=== PATIENT | female | born 1995 | race Caucasian/White ===

== ENCOUNTER 2018-12-02 23:50 | Emergency (ER) | payer OTHER ==
[2018-12-02 23:57] VITALS: BP 135/91; PULSE 72; TEMP 98.5; BMI 30.2
[2018-12-02] MEDS ORDERED: FAMOTIDINE 20 MG/50 ML IVPB 20 MG/50 ML MG IVPB ONE (23:57)
[2018-12-02] MEDS ORDERED: SODIUM CHLORIDE 1,000 ML IV STA (23:57)
--- NOTE | 2018-12-03 | PDOC ---
History of Present Illness - General History Source: Patient Exam Limitations: No Limitations - History of Present Illness Initial Comments: 12/03/18 00:00 The patient is a 23 year old female, with no significant past medical history, who presents to the emergency department with, 3 days of diffuse, burning, mid- abdominal pain with associated nausea and vomiting. She endorses taking Mylanta and Pepto Bismol, without relief. As per patient, she was seen at [facility] 3 days ago at which time she received IV fluids and negative lab work then discharged home. She notes going back to [facility] today but, left prior to evaluation. Patient is passing gas normally. She denies any recent travel or abnormal food intake. She denies recent fevers, chills, headache or dizziness. She denies recent dysuria, frequency, urgency or hematuria. She denies recent chest pain or shortness of breath. Allergies: NKDA Past surgical history: None reported. Social history: Nonsmoker. Denies EtOH use and recreational drug use. <Lela Longoria - Last Filed: 12/03/18 00:00> <Ruma Fuentes - Last Filed: 12/03/18 04:17> - General Chief Complaint: Nausea/Vomiting Stated Complaint: VOMITING X 3 DAYS Time Seen by Provider: 12/02/18 23:54 Past History <Lela Longoria - Last Filed: 12/03/18 00:00> - Immunization History Immunization Up to Date: Yes - Suicide/Smoking/Psychosocial Hx Smoking History: Never smoked Number of Cigarettes Smoked Daily: 0 Hx Alcohol Use: No Drug/Substance Use Hx: No Substance Use Type: None <Ruma Fuentes - Last Filed: 12/03/18 04:17> - Past Medical History Allergies/Adverse Reactions: Allergies Allergy/AdvReac Type Severity Reaction Status Date / Time No Known Allergies Allergy Verified 12/02/18 23:52 Home Medications: Ambulatory Orders Pantoprazole Sodium [Protonix -] 40 mg PO DAILY #14 tablet.ec 12/03/18 Review of Systems - Review of Systems Able to Perform ROS?: Yes Comments:: 12/03/18 00:01 CONSTITUTIONAL: Absent: fever, no chills, no fatigue EYES: Absent: visual changes ENT: Absent: ear pain, no sore throat CARDIOVASCULAR: Absent: chest pain, no palpitations RESPIRATORY: Absent: cough, no SOB GI: Present: Abdominal pain, nausea, vomiting. GENITOURINARY: Absent: dysuria, no frequency, no hematuria MUSKULOSKELETAL: Absent: back pain, no arthralgia, no myalgia SKIN: Absent: rash NEURO: Absent: headache All Other Systems: Reviewed and Negative <Lela Longoria - Last Filed: 12/03/18 00:00> *Physical Exam - Vital Signs Last Vital Signs Temp Pulse Resp BP Pulse Ox 98.5 F 72 18 135/91 100 12/02/18 23:54 12/02/18 23:54 12/02/18 23:54 12/02/18 23:54 12/02/18 23:54 - Physical Exam Comments: 12/03/18 00:03 GENERAL: The patient is awake, alert, and fully oriented, in no acute distress. HEAD: Normal with no signs of trauma. EYES: Pupils equal, round and reactive to light, extraocular movements intact, sclera anicteric, conjunctiva clear with no pallor. +ENT: Ears normal, nares patent, oropharynx clear without exudates. Dry mucous membranes. NECK: Normal range of motion, supple without lymphadenopathy, JVD, or masses. LUNGS: Breath sounds equal, clear to auscultation bilaterally. No wheeze/ crackles. HEART: Regular rate and rhythm, normal S1 and S2 without murmur or rub. +ABDOMEN: Moderate epigastric, periumbilical, and suprapubic tenderness. Soft/ nondistended. BS wnl. No involuntary guarding or rebound. No palpable masses. No hepatosplenomegaly. EXTREMITIES: Normal range of motion, no edema. No clubbing or cyanosis. No cords, erythema, or tenderness. NEUROLOGICAL: Cranial nerves II through XII grossly intact. Normal speech, normal gait. PSYCH: Normal mood, normal affect. SKIN: Warm, Dry, normal turgor, no rashes or lesions noted. <Lela Longoria - Last Filed: 12/03/18 00:00> Moderate Sedation - Procedure Monitoring Vital Signs: Procedure Monitoring Vital Signs Temperature 98.5 F 12/02/18 23:54 Pulse Rate 72 12/02/18 23:54 Respiratory Rate 18 12/02/18 23:54 Blood Pressure 135/91 12/02/18 23:54 O2 Sat by Pulse Oximetry (%) 100 12/02/18 23:54 <Lela Longoria - Last Filed: 12/03/18 00:00> ED Treatment Course - LABORATORY CBC & Chemistry Diagram: 12/03/18 00:10 12/03/18 00:10 <Ruma Fuentes - Last Filed: 12/03/18 04:17> Progress Note - Progress Note Progress Note: Documentation has been prepared under my direction and personally reviewed by me in its entirety. I attest that this documented accurately reflects all work, treatment, procedures and medical decision making performed by me. <Ruma Fuentes - Last Filed: 12/03/18 04:17> Medical Decision Making - Medical Decision Making As noted above, this 23-year-old woman without significant past medical history presents here with persistent nausea/vomiting. Patient was seen elsewhere 3 days ago with nausea and vomiting. Reportedly, workup was negative for acute abnormalities and she was sent home with prescription for Zofran ODT. Patient states soon after discharge, vomiting was recurrent and has continued since then despite Zofran ODT. She presents now with vomiting and burning epigastric/ periumbilical/ suprapubic/pain. She is passing gas and has no history of any surgical procedures. Exam as noted. Patient received normal saline IV 1 L hydration along with 20 mg Pepcid IV. CBC, chemistry profile, INR, lipase, UA sent. Laboratory evaluation essentially normal. Patient states that she feels better after normal saline IV and 20 mg Pepcid IV. She states that the burning pain has improved somewhat although some is still there. Patient will be given Protonix 20 mg by mouth now. It was explained to the patient that her laboratory evaluation is essentially normal and it was remote that any surgical or other urgent process was currently occurring. The nature of her dyspepsia has yet to be determined although gastritis, peptic ulcer disease GERD could all be present. Her gastric process was likely exacerbated by a gastroenteritis. Protonix 20 mg daily will be prescribed. Patient asked for gastroenterology referral for further workup and Dr. Vargas's referral information provided for her. <Ruma Fuentes - Last Filed: 12/03/18 04:17> *DC/Admit/Observation/Transfer - Attestations Scribe Attestion: 12/03/18 00:01 Documentation prepared by Lela Longoria, acting as medical biller for Ruma Fuentes MD. <Lela Longoria - Last Filed: 12/03/18 00:00> <Ruma Fuentes - Last Filed: 12/03/18 04:17> Diagnosis at time of Disposition: Gastroenteritis, Dyspepsia - Discharge Dispostion Disposition: HOME Condition at time of disposition: Stable - Prescriptions Prescriptions: Pantoprazole Sodium [Protonix -] 40 mg PO DAILY #14 tablet.ec - Referrals Referrals: Ranjith Vargas MD [Staff Physician] - Call tomorrow - Patient Instructions Printed Discharge Instructions: DI for Viral Gastroenteritis -- Adult, DI for Dyspepsia Additional Instructions: clear liquids; advance diet slowly Protonix 40 mg daily with next dose tomorrow Avoid alcohol, spicy or high fat foods when you resume full diet Call Dr. Vargas's (shredder tender [facility]) office tomorrow a.m. to arrange follow-up appointment Return to ER if you have persistent vomiting/worsening pain/fever
[2018-12-03] MEDS ORDERED: FAMOTIDINE 20 MG/50 ML IVPB 20 MG/50 ML MG IVPB ONE (00:11)
[2018-12-03 00:59] LABS: BASO % 0.6 % (0-2.0); EOS % 0.9 % (0-4.5); HEMATOCRIT 40.6 % (32.4-45.2); HEMOGLOBIN 14.1 GM/dL (10.7-15.3); LYMPH % 29.7 % (8-40); MCH 29.6 pg (25.7-33.7); MCHC 34.6 g/dl (32.0-36.0); MEAN CELL VOLUME 85.4 fl (80-96); MEAN PLT VOLUME 8.6 fl (7.5-11.1); MONO % 6.8 % (3.8-10.2); PLATELET COUNT 309 K/MM3 (134-434); RBC 4.75 M/mm3 (3.60-5.2); RDW 15.6 % (11.6-15.6); WHITE BLOOD COUNT 9.8 K/mm3 (4.0-10.0)
[2018-12-03 01:04] LABS: HCG,QUALITATIVE URINE Negative
[2018-12-03 01:21] LABS: URINE APPEARANCE CLEAR; URINE BILIRUBIN NEGATIVE (<2.0 mg/dL); URINE COLOR LTYELLOW; URINE GLUCOSE (UA) NEGATIVE (NEGATIVE); URINE KETONE NEGATIVE (NEGATIVE); URINE LEUK ESTERASE NEGATIVE (NEGATIVE); URINE NITRITE NEGATIVE (NEGATIVE); URINE PROTEIN NEGATIVE (NEGATIVE); URINE UROBILINOGEN NEGATIVE mg/dL (0.2-1.0)
[2018-12-03 01:22] LABS: ALK PHOS 111 U/L (45-117); ANION GAP 5 MMOL/L (8-16); BILIRUBIN,TOTAL 0.7 mg/dL (0.2-1); BLOOD UREA NITROGEN 9 mg/dL (7-18); CALCIUM 9.2 mg/dL (8.5-10.1); CHLORIDE 106 mmol/L (98-107); CO2 27 mmol/L (21-32); CREATININE 0.7 mg/dL (0.55-1.3); GLUCOSE,RANDOM 89 mg/dL (74-106); LIPASE 120 U/L (73-393); POTASSIUM 3.8 mmol/L (3.5-5.1); SGOT/AST 9 U/L (15-37); SGPT/ALT 17 U/L (13-61); SODIUM 138 mmol/L (136-145); TOT PROT 7.6 g/dl (6.4-8.2)
[2018-12-03 01:24] LABS: PROTHROMBIN TIME (PATIENT) 12.8 SEC (9.7-13.0)
[2018-12-03 01:25] LABS: INR 1.08 (0.83-1.09)
[2018-12-03] MEDS ORDERED: PANTOPRAZOLE 20 MG TABLET (FP) PO ONE (01:52)
[2018-12-03] MEDS ORDERED: PANTOPRAZOLE 40 MG TABLET (FP) ONE (01:52)
== END 2018-12-03 02:10 | disposition home or self-care (01) ==
LOC: FER 23:50
PROC: 3E033GC Introduction of Other Therapeutic Substance into Peripheral Vein, Percutaneous Approach (ICD-10-PCS; principal; 2018-12-02)
PROC: 3E0337Z Introduction of Electrolytic and Water Balance Substance into Peripheral Vein, Percutaneous Approach (ICD-10-PCS; 2018-12-02)
DX: K52.9 Noninfective gastroenteritis and colitis, unspecified (principal); R10.13 Epigastric pain
CPT/HCPCS: 36415; 80053; 81003; 83690; 84703; 85025; 85610; 99281-25; J7030